=== PATIENT | male | born 1990 | race Caucasian/White ===

== ENCOUNTER 2019-04-17 04:50 | Emergency (ER) | payer SELFPAY ==
--- NOTE | 2019-04-17 05:07 | EDM.PDOC ---
ED HPI GENERAL MEDICAL PROBLEM - General Chief Complaint: General Stated Complaint: MED Time Seen by Provider: 04/17/19 05:06 - History of Present Illness INITIAL COMMENTS - FREE TEXT/NARRATIVE: HPI 28-year-old male with a reported history of diabetes (type uncertain) was reportedly been off insulin for 6 months presents and law enforcement custody with a law enforcement request for medical clearance. Patient denies recent illness, states he is in his baseline health, denies any medical complaints. Patient was arrested atraumatically (independently stated by both patient and law enforcement). ROS with no recent constitutional symptoms. Exam HR 114, RR 18, BP 135/90, T 36.2C, SaO2 94% on room air. Gen: Pleasant, non-toxic appearing, resting comfortably HEENT: NC, AT, PEERL, EOMI. Resp: Clear to auscultation bilaterally. Unlabored respirations with a normal work of breathing. Card: Regular rate and rhythm. Extremities warm and well perfused. GI: Non-distended. : Deferred MSK: No visible deformities, strength and tone without visually appreciable deficit. Neuro: alert and oriented 3, no facial asymmetry, vision and hearing WNL. Heme/Lymph: Deferred Skin: Normal color with no visible lesions (other than noted above). Psych: Mood and affect appropriate. MDM Previous chart, nursing note, and vitals reviewed. A: 28-year-old male with a reported history of diabetes (type uncertain) was reportedly been off insulin for 6 months presents and law enforcement custody with a law enforcement request for medical clearance. DDx & Evaluation: Accu-Chek WNL (90). Resting heart rate normalized, patient without identifiable acute medical processes on history, exam, or ROS. Patient discharged in law enforcement custody. Impression: encounter for medical screening. - Related Data Allergies Allergy/AdvReac Type Severity Reaction Status Date / Time No Known Allergies Allergy Verified 04/17/19 05:02 Home Meds: Home Meds Insulin Admin. Supplies [Autopen] 0 units SQ ASDIRECTED 04/17/19 [History] Social & Family History - Tobacco Use Smoking Status *Q: Never Smoker - Recreational Drug Use Recreational Drug Use: No ED ROS GENERAL - Review of Systems Review Of Systems: See Below ED EXAM, GENERAL - Physical Exam Exam: See Below Course - Vital Signs Last Recorded V/S: Last Vital Signs Temp 36.2 C 04/17/19 05:00 Pulse 114 H 04/17/19 05:00 Resp 18 04/17/19 05:00 BP 135/90 04/17/19 05:00 Pulse Ox 94 L 04/17/19 05:00 - Orders/Labs/Meds Orders: Active Orders 24 hr Category Date Time Status Blood Glucose Check, Bedside [RC] ONETIME Care 04/17/19 04:59 Active Labs: Laboratory Tests 04/17/19 Range/Units 05:02 POC Glucose 90 (60-110) mg/dL Departure - Departure Time of Disposition: 05:06 Disposition: Home, Self-Care 01 Clinical Impression: Encounter for medical screening examination - Discharge Information Referrals: PCP,None [Primary Care Provider] - Additional Instructions: You were in seen in the [facility] Emergency Department for evaluation after your halfway by law enforcement. No significant issues were noted on your examination. Please read and follow all of the instructions below. Please follow up with your primary care physician in 2-4 days with respect to your diabetes. When calling for follow-up care, please make the office aware that this follow-up is from your recent emergency room visit. If for any reason you are refused follow-up, please contact the [facility] Emergency Department at and asked to speak to the emergency department charge nurse. Your care today was limited to identifying and treating emergent medical problems only. Many people have subtle differences in their test results that require follow up with their outpatient physician(s) to correctly determine if this represents a normal variation or concerning abnormality with respect to your specific health. The care given to you today was limited to identifying and treating emergent medical problems - you need to request a copy of all of your medical records from today's visit and follow up with your outpatient physician(s) to review both today's visit and your overall health. If you have any new symptoms or if you are at all concerned about your health please return immediately to the emergency department. Prescriptions: If you are uninsured or have financial difficulties with filling your prescription(s), you may consider using a free pharmacy discount service such as [employer] ([employer]) or [employer] (TickTick[employer]). These services allow you to search for a medication on your phone (or computer) and obtain a coupon that usually has a significant discount from the list urias at a pharmacy. Your physician as well as [facility] does not have a financial relationship with either of these services. You may also wish to speak with your physician to determine if lower cost prescriptions are possible. Obtaining primary care: 1. [facility] provides pediatrics (children), family medicine (children, adults, and some obstetrical care), and internal medicine (adults). Further specialty care is also available. Same day appointments are available. They may be contacted at [phone] and are open Friday through Friday 8 AM to [address] [facility] are located at [facility], [address] [place] [address]. 2. [facility] offers family medicine, internal medicine, women health, and further specialty care. [facility] may be contacted at [phone]. [facility] is located at [address] [facility] [address]. 3. If you have health insurance, please also contact your insurer for a list of accepting providers under your policy, you may contact these providers for further health care. Occupational health: Work related injuries may consider following up with [facility], . Occupational health services are located at [address] [place] [address] and are open Friday through Friday from 7: 30 am to 5:00 pm. Obstetrical and Gynecological Care: [facility], , Friday through Friday 8 AM to 5 PM. [address] [place] [address]. Eyecare: If you have an eye injury you should follow up with your jeweler apprentice or with [facility], at [phone] or [phone] , they are located at [address] [place] [address]. Dental Care Dago Shields DDS. [address] [place] [address]. Ph. [phone] Sesar Shields DDS MS. [address] [facility] [address], [place], [place]. Ph. Shaun Howe DDS. 10 04/[address] [place] [address]. Ph. [phone] Donny Abraham DDS. [address] [facility] [address] [place]. Ph. [phone] [facility]. [address] [facility] [address] [place], [place]. Ph. Tico Bajwa DDS. [address] [facility]. Ph. [phone] [facility]. [address] [place], [place]. Ph. [phone] [facility]. [address] [place] [address], [place], [place]. Ph. [phone] [facility] [address] [place] [phone]. Ph. [facility]. [address] [place] [address] [address]. [place], [place]. Ph. [phone] [facility]. [address], [place]. Ph. Sepsis Event Note - Evaluation Sepsis Screening Result: No Definite Risk - Focused Exam Vital Signs: Vital Signs Temp Pulse Resp BP Pulse Ox 04/17/19 05:00 36.2 C 114 H 18 135/90 94 L Date Exam was Performed: 04/17/19 Time Exam was Performed: 05:05 - My Orders Last 24 Hours: My Active Orders 04/17/19 04:59 Blood Glucose Check, Bedside [RC] ONETIME - Assessment/Plan Last 24 Hours: My Active Orders 04/17/19 04:59 Blood Glucose Check, Bedside [RC] ONETIME
== END 2019-04-17 05:10 ==
LOC: MW.ED 04:50
DX: Z13.1 Encounter for screening for diabetes mellitus (principal)
CPT/HCPCS: 82962; 99283